=== PATIENT | male | born 1995 | race Caucasian/White ===

== ENCOUNTER 2021-12-08 08:47 | Day surgery (SDC) | payer SELFPAY ==
[2021-12-07 12:43] VITALS: BMI 25.7
[2021-12-08] VITALS (8 sets, daily range): BP systolic 121–137; BP diastolic 68–88; PULSE 55–89; RESP 16–18; TEMP 36.6–37.1; O2SAT 96–99
[2021-12-08] MEDS: sodium chloride 0.9% 1,000 ML 30 ML IV (09:17)
--- NOTE | 2021-12-08 09:50 | W.PM.OPSUD ---
Surgery/Procedure H&P Update DATE OF PROCEDURE: December 08, 2021 DATE H&P PERFORMED: 11/23/21 H&P UPDATE INFORMATION: I have reviewed H&P completed within last 30 days, I have examined patient prior to procedure and No changes to prior documentation PREOP DIAGNOSIS: Papilloma right inferior tonsillar pillar PRIMARY INDICATION FOR PROCEDURE: Papilloma right inferior tonsillar pillar to be removed for biopsy purposes. PLANNED PROCEDURE: Operation Date: 12/08/21 10:15 Proposed Procedures p Excision Mouth Mass/Lesion 08646/d10.30(Not Applicable) - Luis Felipe Mendoza MD
--- NOTE | 2021-12-08 09:58 | ANES.PREANE2 ---
Pre-Anesthetic Assessment Height/Weight: Height 1.83 m Weight 86.183 kg Temp Pulse Resp BP Pulse Ox 98.7 F 73 16 124/88 99 12/08/21 09:06 12/08/21 09:06 12/08/21 09:06 12/08/21 09:06 12/08/21 09:06 Preop Diagnosis: Papilloma right inferior tonsillar pillar Operation Date: 12/08/21 10:15 Proposed Procedures p Excision Mouth Mass/Lesion 84562/d10.30(Not Applicable) - Luis Felipe Mendoza MD Familial anesthetic complications: None Was Beta Judah taken within 24 hours: N/A Was Clonidine taken within 24 hours: N/A Last intake: Intake Last Liquid Date 12/07/21 Last Liquid Time 22:00 Last Solid Date 12/07/21 Last Solid Time 21:30 Social No alcohol and No tobacco Exam alert, oriented x 3, clear to auscultation bilaterally and regular rate & rhythm Airway Mallampati: Class II Dentition: chipped Pulmonary None reported CV/HEM None reported None reported Hepatic None reported GI None reported Metabolic None reported Musc/skel None reported Neuropsych None reported Anesthetic Plan ASA status: 1 Anesthesia: General Risk of > 500 ml blood loss (7ml/kg in children): No Medications/Allergies Home Medications Medication Instructions Recorded Confirmed Last Taken Type No Known Home Medications 12/07/21 12/07/21 Unknown History Allergies Allergy/AdvReac Type Severity Reaction Status Date / Time Iodinated Contrast Media Allergy ALGY-Rash Verified 12/08/21 09:04 Current Medications Generic Name Dose Route Start Last Admin Trade Name Freq PRN Reason Stop Dose Admin Sodium Chloride 1,000 mls @ 30 mls/hr 12/08/21 09:00 12/08/21 09:17 Sodium Chloride 0.9% IV 12/09/21 08:59 30 mls/hr .Q24H LOLLY Administration PFSH Anesthesia Medical History No pertinent past medical history Surgical History No pertinent past surgical history Family History Other Cancer Diabetes Hypertension Social History Smoking and tobacco status: former smoker (quit last Sunday smoked 1 pack a day) Data Anesthesia Cardiac Studies: No Data to Display
[2021-12-08] MEDS: EPINEPHrine 1 mg/mL INJ 2 MG XX (10:24)
--- NOTE | 2021-12-08 10:35 | PM.OP ---
Operative Report Date of procedure: December 08, 2021 Pre-op diagnosis: Preop Diagnosis Papilloma right inferior tonsillar pillar Post-op diagnosis: Same Post-op findings: 1 cm papillomatous lesion on the inferior aspect of the right anterior tonsillar pillar extending to the tonsil. Procedure done: Excision of right anterior pillar/tonsillar papilloma Implants: No implants Specimens removed/disposition: Excised papilloma with surrounding attachment Pathology: Papilloma Surgeon: Luis Felipe Mendoza MD Anesthesia: General Estimated blood loss: 10 mL Complications: No complications encountered Findings: 1 cm x 5 mm x 5 mm raised papilliform lesion extending from the inferior aspect of the right anterior tonsillar pillar to the tonsil. Brief History: 26-year-old male found to have a papillomatous lesion on the inferior aspect of the right anterior tonsillar pillar in the office on evaluation. He is brought to the operating room now to undergo excision of this lesion. The procedure risks and complications were explained in the office setting. Informed consent was granted and witnessed. Risks associated would be bleeding infection numbness scarring swelling bruising recurrence and need for additional treatment. Anesthetic risks also involved. Procedure: Description of procedure: The patient was placed on the operating table in the supine position. Adequate general endotracheal tube anesthesia was obtained. He was given Ancef IV for prophylaxis. The table was rotated 90 degrees and placed in slight headdown position. The eyes were taped shut and head drape was applied in usual fashion. A Jamey-Morgan mouthgag was inserted over the endotracheal tube and tongue ensuring that the upper incisors were in the guard. This was opened and suspended from a rolled blanket on his chest. A timeout was accomplished identifying the patient date of plan procedure allergies fire risk and medications given. With all in agreement the procedure continued. Direct visualization was used to see the papillomatous lesion. This was retracted with DeBakey forceps identifying the attachment to the anterior tonsillar pillar inferiorly. A 15 blade was used to excise down through the anterior pillar into the tonsil itself. This was resected and sent to pathology for permanent section only. The area was treated with 1-1000 epinephrine on cottonoids. After several minutes there still appeared to be active bleeding and therefore suction cautery was used to control the bleeding. Then the area was irrigated with saline and manipulated to make sure that no further bleeding was going to occur. Then the mouthgag was released and removed and the patient's head was returned to the upright position. Head drape and tape were removed. The throat was suctioned again with no sign of bleeding. Patient was then returned to anesthesia for wake-up and extubation. He tolerated the procedure well had an estimated blood loss of 10 mL and arrived in recovery in stable condition.
--- NOTE | 2021-12-08 10:57 | P.PCN_ITS ---
PACU note Narrative: VSS, Good respiratory effort, report to [employer] SALES Exam: awake
--- NOTE | 2021-12-08 10:57 | PM.PACU ---
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
== END 2021-12-08 11:38 | disposition home or self-care (01) ==
PROVIDERS: Visit Provider Otolaryngology
PROC: (CPT 42999; principal; 2021-12-08 10:05)
DX: D10.5 Benign neoplasm of other parts of oropharynx (principal); Z87.891 Personal history of nicotine dependence; K12.0 Recurrent oral aphthae
CPT/HCPCS: 42999; 88305; J0171; J0330; J0690; J1100; J2250; J2405; J2704; J2710; J3010; J3490; J7030

== ENCOUNTER → 2023-12-14 08:45 | Outpatient (BNVA) | payer BC, SELFPAY | PROVIDERS: Referring Provider Nurse Practitioner Family; Visit Provider Physician Assistant | DX: G56.01 Carpal tunnel syndrome, right upper limb | CPT/HCPCS: 73110 ==

== ENCOUNTER 2024-04-17 06:49 | Day surgery (SDC) | payer BC, SELFPAY ==
[2024-04-17] VITALS (7 sets, daily range): BP systolic 97–115; BP diastolic 49–87; PULSE 54–72; RESP 12–18; TEMP 36.2–36.5; O2SAT 94–98
[2024-04-17] MEDS: sodium chloride 0.9% 1,000 ML 30 ML IV (07:19)
--- NOTE | 2024-04-17 07:19 | P.ANESASSM_ITS ---
Pre-Anesthetic Assessment Height/Weight: Height 1.83 m Weight 93.44 kg Temp Pulse Resp BP Pulse Ox O2 Del Method 97.2 F L 63 16 115/87 98 Room Air 04/17/24 07:03 04/17/24 07:03 04/17/24 07:03 04/17/24 07:03 04/17/24 07:03 04/17/24 07:03 Operation Date: 04/17/24 08:20 Proposed Procedures p Carpal Tunnel Release(Right) - Richard Squires DO Familial anesthetic complications: None Was Beta Judah taken within 24 hours: N/A Was Clonidine taken within 24 hours: N/A Last intake: Intake Last Liquid Date 04/16/24 Last Liquid Time 21:30 Last Solid Date 04/16/24 Last Solid Time 21:30 Social Tobacco and No alcohol Exam alert, oriented x 3, clear to auscultation bilaterally and regular rate & rhythm Airway Mallampati: Class II Dentition: chipped Anesthetic Plan ASA status: 1 Anesthesia: MAC Risk of > 500 ml blood loss (7ml/kg in children): No Medications/Allergies Home Medications Medication Instructions Recorded Confirmed Last Taken Type No Known Home Medications 02/27/24 04/17/24 Unknown History Allergies Allergy/AdvReac Type Severity Reaction Status Date / Time Iodinated Contrast Media Allergy ALGY-Rash Verified 02/27/24 09:44 [facility] Anesthesia Medical History No pertinent past medical history Surgical History History of surgical procedure on mouth No pertinent past surgical history Family History Other Cancer Diabetes Hypertension Social History Smoking and tobacco/nicotine status: former use of tobacco/nicotine Data Anesthesia Cardiac Studies: No Data to Display
[2024-04-17] MEDS: acetaminophen 1,000 MG/100 ML PIGGYBACK 400 MG IV (07:21)
[2024-04-17] MEDS: ketorolac 30 mg/mL INJ IVP (07:23)
[2024-04-17] MEDS: scopolamine 1.5 Patch 1 PATCH TRANSDERMA (07:24)
--- NOTE | 2024-04-17 07:43 | W.PM.OPSFHP ---
Same Day Surgery H&P Indication for Procedure/HPI DATE OF PROCEDURE: April 17, 2024 CHIEF COMPLAINT/INDICATIONFOR SURGICAL PROCEDURE: Right carpal tunnel syndrome PREOP DIAGNOSIS: Right carpal tunnel syndrome PLANNED PROCEDURE: Operation Date: 04/17/24 08:20 Proposed Procedures p Carpal Tunnel Release(Right) - Richard Squires DO Medications/Allergies* Home Medications Medication Instructions Recorded Confirmed Type No Known Home Medications 02/27/24 04/17/24 History Allergies/Adverse Reactions Allergy/AdvReac Type Severity Reaction Status Date / Time Iodinated Contrast Media Allergy ALGY-Rash Verified 02/27/24 09:44 Current Medications: Generic Name Dose Route Start Last Admin Trade Name Freq PRN Reason Stop Dose Admin Sodium Chloride 1,000 mls @ 30 mls/hr 04/17/24 07:00 04/17/24 07:19 Sodium Chloride 0.9% IV 04/18/24 06:59 30 mls/hr .Q24H LOLLY Administration Pertinent History/Comorbid Conditions* Medical History (Updated 02/27/24 @ 10:25 by NI Hart) No pertinent past medical history Surgical History (Updated 12/16/21 @ 08:23 by Luis Felipe Mendoza MD) History of surgical procedure on mouth No pertinent past surgical history Family History (Updated 11/23/21 @ 08:04 by Aruna Seharer MA) Diabetes Cancer Hypertension Social History Smoking and tobacco/nicotine status: former use of tobacco/nicotine Pertinent Exam Findings alert, oriented x 3, operative site marked and procedure specific exam findings Please refer to detailed orthopedic examination on 02/27/2024 listed below: Today preoperatively he has positive Tinel's over the carpal tunnel as well and is positive median nerve compression test. Right hand Hand exam-positive Tinel's and positive Phalen's test. No thenar atrophy and mild thenar muscle weakness. Full range of motion in fingers and wrist and fingers are warm and well-perfused with normal cap refill under 2 seconds. Radial pulse 2+, no intrinsic muscle weakness noted. Elbow exam-negative Tinel's test Recommendations Surgery/Procedure today Other Plans: Patient has right carpal tunnel syndrome. Patient is here today to proceed with right carpal tunnel release surgery. He understands the ins and outs of his procedures risk benefits complication alternatives of surgery and through shared decision-making elects proceed with surgical intervention. All questions answered at this time. Coding Level of Care Code Acute Code for Chg Fwd
[2024-04-17] MEDS: ceFAZolin 2,000 MG in sodium chloride 0.9% (plus) 50 ML 100 MG IV (08:14)
--- NOTE | 2024-04-17 08:59 | W.PM.BPON ---
Date of Procedure: 04/17/2024 Surgeon: Richard Squires DO Bead Worker Sewing(s): None Procedure(s) performed: Right carpal tunnel release Findings of the procedure(s): Right carpal tunnel syndrome underwent procedure as planned without issues or complications. Estimated blood loss: 2 mL Specimen(s) removed: None Post-operative diagnosis: Right carpal tunnel syndrome
--- NOTE | 2024-04-17 08:59 | PM.OP ---
Operative Report Date of procedure: April 17, 2024 Surgeon: Richard Squires DO Procedure: Preoperative gnosis: Right carpal tunnel syndrome post-op diagnosis: Same Procedure done: 1.?Right carpal tunnel?release Surgeon: Richard Squires DO Anesthesia: MAC (Local) Estimated blood loss: 2 mL Tourniquet time 7 minutes IV fluids: See anesthesia?record Complications: None Findings: See operative?report narrative Condition: stable Disposition: same day Brief History: Patient is a pleasant 29 year-old male with?right carpal tunnel syndrome.? Patient has been worked up in the outpatient setting findings and physical examination consistent with this.? Patient nerve conduction studies consistent with possible right sided minor/mild right carpal tunnel syndrome.? We detailed out patient's?risk benefits complication alternatives with surgical and nonsurgical treatment options. Through shared decision making, patient agrees to proceed with surgical intervention of the right carpal tunnel?release .? Patient understands and agrees with current plan.? All questions answered.? Patient elects to proceed with surgical intervention with carpal tunnel?release. Procedure: Patient seen and evaluated in the preoperative holding area.? Consent was?reviewed and signed with patient.? Correct extremity was marked.? Patient was seen evaluated by the anesthesia department once cleared for surgery was brought back to the operative suite.? Patient was kept on [facility] in supine position all bony prominences were well-padded patient properly secured to the bed.??Right upper extremity was then placed onto an armboard.? A nonsterile tourniquet was applied to the?RIght upper arm.? Patient underwent anesthesia per the anesthesia department.? Patient's?Right upper extremity was then prepped and draped in standard orthopedic fashion.? Final timeout performed.? Patient?received appropriate preoperative antibiotics. Under sterile aseptic technique patient?received local anesthesia over the preplanned carpal tunnel incision site. Esmarch was used to exsanguinate the?Right upper extremity and tourniquet was insufflated to 250 mmHg. A standard mini open?Right carpal tunnel incision was made.? Starting distally at Landin's cardinal line in line with the fourth?ray extending proximally distal to the wrist crease centered over the carpal tunnel.? Sharp scalpel incision was made through skin and subcutaneous tissue.? Self-retaining?retractor was placed and the palmar fascia was identified.? This was then split longitudinally and direct visualization of the transverse carpal ligament was then made.? I then utilizing scalpel feathered through the transverse carpal ligament until I entered the floor of the transverse carpal tunnel ligament into the carpal tunnel.? Next I switched to dissection scissors and completed my?release of the transverse carpal ligament distally with care to protect the?recurrent motor branch.? I completely?released into the palmar fat and until no entrapment was noted distally.? Care was made to protect the superficial palmar arch during my distal dissection.?? Next I utilized a nasal speculum placed on top of the transverse carpal ligament and utilize this to?retract the subcutaneous fat and tissue and under direct loupe magnification was able to identify the transverse carpal ligament.? Next I then placed a [place] underneath the transverse carpal tunnel ligament to protect the contents of the carpal tunnel and subsequently utilizing dissection scissors under loupe magnification completely?released the transverse carpal ligament proximally into the median antebrachial fascia.? Care was made to protect the palmar cutaneous branch by keeping my scissors curved ulnarly.? Once completely?released, I then placed my [place] and had appropriate decompression of the carpal tunnel proximally as well as distally.? I then inspected the contents of the carpal tunnel which showed an hourglass shape of the median nerve showing its compression.? No masses were noted.? Tendons appeared healthy.? Wound was then thoroughly irrigated.? Tourniquet deflated.? Hemostasis satisfactory with bipolar electrocautery.? I then closed the incision with interrupted nylon stitches.? Xeroform 4 x 4's and a bulky soft dressing was applied.? Patient was then awakened from anesthesia and taken to PACU in stable condition.? Patient tolerated procedure without complications. Disposition: Patient taken to PACU in stable condition?recovering well.? Dressing clean dry and intact.? Patient will?receive appropriate discharge instructions as well as pain medication postoperatively.? Patient to follow-up with me in the office in 2 weeks.? They understand they may be weightbearing as tolerated to the?right hand.? Patient should keep incision clean dry and intact.? Patient understands if any questions or concerns may contact the office.
[2024-04-17] MEDS: lidocaine-epi 1% 20 mL INJ 5 ML INJECTION (09:15)
[2024-04-17] MEDS: ROPivacaine 0.5% SDV 30 mL 25 MG INJECTION (09:15)
--- NOTE | 2024-04-17 10:00 | ANE.PACU2 ---
Inpatient post-anesthesia follow up: Airway intact: Yes Vital signs: Temperature 97.7 F Pulse Rate 55 Respiratory Rate 16 Blood Pressure 97/68 Pulse Oximetry 98 Oxygen Delivery Me thod Room Air Oxygen Flow Rate Fraction of Inspir ed Oxygen Hydration adequate: Yes Nausea and vomiting: No Pain level: 1 Mental status: Baseline
== END 2024-04-17 10:00 | disposition home or self-care (01) ==
PROVIDERS: Visit Provider Student in an Organized Health Care Education/Training Program
PROC: (CPT 64721; principal; 2024-04-17 08:20)
DX: G56.01 Carpal tunnel syndrome, right upper limb (principal); Z87.891 Personal history of nicotine dependence
CPT/HCPCS: 64721; J0131; J0690; J1885; J2250; J2704; J2795; J3010; J7030

== ENCOUNTER 2025-06-17 17:53 | Emergency (ER) | payer BC, SELFPAY ==
--- OUTSIDE RECORDS SUMMARY | 2025-06-17 17:59 | XMS_ITS | Data Portability ---
Author Organization ADAMA Tucker [facility] Address [address] [facility] [address] [place] [address] Care Team Providers Care [employer] Worker Name Role Phone GABBI HOYT Primary Care Provider Assessment Encounter Date Assessment Date Assessment LastModified by Organization Details LastModified Time 03/10/2025 03/10/2025 We had a long discussion regarding his abdominal pain. He continues to have right lower quadrant abdominal pain that is intermittently more severe. I offered to have him see a licensed electrician if he wanted to. I also did let him know that I felt that that would be low yield at this time. I did let him know that post normal colonoscopy and post normal CT scan that it would be reasonable to wait and watch to see if his pain improves. He was also having some upper quadrant pain that he felt improved with the PPI. I have encouraged him to be more consistent with his MiraLAX and with his Metamucil since he continues to have constipation. While I do not think it is only a problem, I can is important that we resolve the constipation issue so that we can see what pain is left. At that point, if we continue to have issues, we will look at other diagnostic and or therapeutic answers. Not available 03/10/2025 22:37:10 Plan of Treatment Reminders Order Date Submit Date Provider Last Modified By Organization Details Last Modified Time Details Appointments None recorded. Lab CMP, serum or plasma 2024 025 [facility], [address], [facility], [place], [address], 05/28/202 5 13:32:27 CBC 2024 025 Pending sale to [facility], [address] [facility], [facility], [place], [address], 5 12:36:38 lipid panel, blood 2023 024 Pending sale to [facility], [address] [facility], [address], [address], 4 17:16:33 CMP, serum or plasma 2023 024 Pending sale to [facility], [address] [facility], [facility], [place], [address], 4 17:16:31 CBC 2023 024 Pending sale to [facility], [address] [facility], [facility], [place], [address], 4 16:44:26 TSH, serum or plasma 2023 024 [facility] ([facility]), [address] [place], [address], 4 18:12:27 vitamin B12, serum 2023 024 [employer] [facility], [address], [address], [place], [address], 4 11:52:03 vitamin D, 25-hydroxy, total, serum 2023 024 [employer] [facility], [address], [place], [address], 4 11:52:04 Referral family medicine referral 2024 025 [email or web address] 2 Not available 5 18:21:21 Procedures colonoscopy procedure (PROC) 2024 025 [email or web address] 2 [facility], [address] , [place], [address], 11:28:09 Surgeries None recorded. Imaging XR, abdomen, 2 view 2024 025 [email or web address] 2 [facility] ([facility]), [address], [place], [address], 15:37:53 Medication Orders omeprazole 20 mg capsule,del ayed release 2024 025 [id number], [address], [address], [place], [address], 12:57:43 Patient TargetsNo targets recorded. Patient Instructions Encounter Date Encounter Id Patient Instructions Last Modified By Organization Details Last Modified Time 02/03/2025 [id number] colonoscopy prep - miralax Not available 02/03/2025 13:41:38 colonoscopy education Not available 02/03/2025 13:41:38 colonoscopy education Not available 02/03/2025 13:41:37 Reason for Referral Family Medicine Referral for Altered bowel function Referring Physician: Gabbi Hoyt, Family Medicine, Encounter Date: 12/31/2024 Results Created Date Observation Date Name Description Value Unit Range Abnormal Flag Note LastModifiedBy Organization Detail LastModifiedTime 12/05/1912/05/2023 CBC WBC 6.6 x10 4.5-10 .5 Not Available [facility] [address] [facility] [address], [place], [address], 12/05/2023 16:44:26 12/05/19 24 12/05/2023 CBC RBC 5.21 x10 4.30-5 .90 Not Available [facility] [address] [facility] [address], [place], [address], 12/05/2023 16:44:26 12/05/19 24 12/05/2023 CBC HGB 15.9 g/dL 13.5-1 8.0 Not Available [facility] [address] [facility], [place], [address], 12/05/2023 16:44:26 12/05/19 24 12/05/2023 CBC HCT 46.2 % 35.0-6 0.0 Not Available [facility] [address] [facility], [place], [address], 12/05/2023 16:44:26 12/05/19 24 12/05/2023 CBC MCV 88.6 fL 80.0-9 9.9 Not Available [facility] [address] [facility] [address], [place], [address], 12/05/2023 16:44:26 12/05/19 24 12/05/2023 CBC MCH 30.4 pg 27.0-3 2.0 Not Available [facility] [address] [facility] [address] [facility], [place], [address], 12/05/2023 16:44:26 12/05/19 24 12/05/2023 CBC MCHC 34.3 g/dL 32.0-3 6.0 Not Available [facility] [address] [facility], [place], [address], 12/05/2023 16:44:26 12/05/19 24 12/05/2023 CBC RDW 13.4 % 11.5-1 4.5 Not Available [facility] [address] [facility], [place], [address], 12/05/2023 16:44:26 12/05/19 24 12/05/2023 CBC plt 185.9 x10 150.0- 451.0 Not Available [facility] [address] [facility] [address] [facility], [place], [address], 12/05/2023 16:44:26 12/05/19 24 12/05/2023 CBC lymphocytes % 12.1 % 20.0-5 0.0 low Not Available [facility] [address] [address], [place], [address], 12/05/2023 16:44:26 12/05/19 24 12/05/2023 CBC granulcytes % 80.6 % 30.0-7 0.0 high Not Available [facility] [address] [address], [place], [address], 12/05/2023 16:44:26 12/05/19 24 12/05/2023 CBC monocytes % 6.4 % 2.0-10 .0 Not Available [facility] [address] [address], [place], [address], 12/05/2023 16:44:26 12/05/19 24 12/05/2023 CBC granulcytes# 5.3 x10 Not Lucía ilable [facility] [address] [address], [place], [address], 12/05/2023 16:44:26 12/05/19 24 12/05/2023 CBC lymphocytes # 0.8 x10 Not Available [facility] [address] [address], [place], [address], 12/05/2023 16:44:26 12/05/19 24 12/05/2023 CBC monocytes # 0.4 x10 Not Avai lable [facility] [address] [address], [place], [address], 12/05/2023 16:44:26 12/05/19 24 12/05/2023 CMP (MALE ) glucose 105.0 mg/dL 60.0-9 9.0 high Not Available [facility] [address] [address], [place], [address], 12/05/2023 17:16:31 12/05/19 24 12/05/2023 CMP (MALE ) BUN (blood urea nitrogen) 19.0 mg/dL 10.0-2 6.0 Not Available [facility] [address] [facility], [place], [address], 12/05/2023 17:16:31 12/05/19 24 12/05/2023 CMP (MALE ) creatinine (serum) 0.9 mg/dL 0.4-1. 5 Not Available [facility] [address] [facility] [address] [address], [place], [address], 12/05/2023 17:16:31 12/05/19 24 12/05/2023 CMP (MALE ) BUN/creatini ne ratio 20.65 ratio Not Available [facility] [address] [address], [place], [address], 12/05/2023 17:16:31 12/05/19 24 12/05/2023 CMP (MALE ) eGFR calculated 103.4 Not Available [facility] [address] [facility] [address] [address], [place], [address], 12/05/2023 17:16:31 12/05/19 24 12/05/2023 CMP (MALE ) total protein 7.6 g/dL 6.0-8. 5 Not Available [facility] [address] [facility] [address] [address], [place], [address], 12/05/2023 17:16:31 12/05/19 24 12/05/2023 CMP (MALE ) total bilirubin 1.4 mg/dL 0.2-1. 3 high Not Available [facility] [address] [facility] [address] [address], [place], [address], 12/05/2023 17:16:31 12/05/19 24 12/05/2023 CMP (MALE ) albumin 4.5 g/dL 3.5-5. 5 Not Available [facility] [address] [facility] [address], [place], [address], 12/05/2023 17:16:31 12/05/19 24 12/05/2023 CMP (MALE ) globulin 3.1 calc Not Available [facility] [address] [facility] [address], [place], [address], 12/05/2023 17:16:31 12/05/19 24 12/05/2023 CMP (MALE ) AST (SGOT) 25.0 U/L 0.0-46 .0 Not Available [facility] [address] [address], [place], [address], 12/05/2023 17:16:31 12/05/19 24 12/05/2023 CMP (MALE ) altv (SGPT) 21.0 U/L 13.0-6 9.0 normal Not Available [facility] [address] [facility] [address], [place], [address], 12/05/2023 17:16:31 12/05/19 24 12/05/2023 CMP (MALE ) A/G ratio 1.5 ratio Not Available [facility] [address] [address], [place], [address], 12/05/2023 17:16:31 12/05/19 24 12/05/2023 CMP (MALE ) ALP phos 52.0 U/L 30.0-1 40.0 normal Not Available [facility] [address] [facility] [address], [place], [address], 12/05/2023 17:16:31 12/05/19 24 12/05/2023 CMP (MALE ) calcium 8.8 mg/dL 8.4-10 .5 Not Available [facility] [address] [facility] [address], [place], [address], 12/05/2023 17:16:31 12/05/19 24 12/05/2023 CMP (MALE ) sodium 141.0 mmol/ L 136.0- 145.0 Not Available [facility] [address] [facility] [address], [place], [address], 12/05/2023 17:16:31 12/05/19 24 12/05/2023 CMP (MALE ) potassium 3.7 mmol/ L 3.5-5. 1 Not Available [facility] [address] [facility] [address], [place], [address], 12/05/2023 17:16:31 12/05/19 24 12/05/2023 CMP (MALE ) chloride 105.0 mmol/ L 98.0-1 10.0 normal Not Available [facility] [address] [facility] [address], [place], [address], 12/05/2023 17:16:31 12/05/19 24 12/05/2023 CMP (MALE ) C02 26.0 mmol/ L 22.0-3 1.0 Not Available [facility] [address] [facility] [address], [place], [address], 12/05/2023 17:16:31 12/05/19 24 12/05/2023 CMP (MALE ) anion gap 10.0 calc Not Available [facility] [address] [facility] [address], [place], [address], 12/05/2023 17:16:31 12/05/19 24 12/05/2023 CMP (MALE ) osmolality 293.6 calc Not Available [facility] [address] [facility] [address], [place], [address], 12/05/2023 17:16:31 12/05/19 24 12/05/2023 LIPID PROFI LE (MALE ) cholesterol 180.0 mg/dL 0.0-20 0.0 Not Available [facility] [address] [address], [place], [address], 12/05/2023 17:16:33 12/05/19 24 12/05/2023 LIPID PROFI LE (MALE ) trig 75.0 mg/dL 0.0-15 0.0 Not Available [facility] [address] [facility] [address], [place], [address], 12/05/2023 17:16:33 12/05/19 24 12/05/2023 LIPID PROFI LE (MALE ) HDL - direct 44.0 mg/dL >40.0 Not Available [facility] [address] [address], [place], [address], 12/05/2023 17:16:33 12/05/19 24 12/05/2023 LIPID PROFI LE (MALE ) VLDL - direct 15.0 mg/dL Not Available [facility] [address] [address], [place], [address], 12/05/2023 17:16:33 12/05/19 24 12/05/2023 LIPID PROFI LE (MALE ) LDL - direct 121.0 mg/dL 0.0-13 0.0 Not Available [facility] [address] [address], [place], [address], 12/05/2023 17:16:33 12/05/19 24 12/06/2023 VITAM IN B12 vitamin B12 339 pg/mL 200-11 00 normal Pleas e Note: Altho ugh the refer ence range for vitam in B12 is 200-1 100 pg/mL , it has been repor christopher that betwe en 5 and 10% of patie nts with value s betwe en 200 and 400 pg/mL may exper ience neuro psych iatri c and hemat ologi c abnor malit ies due to occul t B12 defic iency ; less than 1% of patie nts with value s above 400 pg/mL will have sympt oms. Not Available [facility] [address] [place], [address], 12/06/2023 11:52:03 12/05/19 24 12/06/2023 VITAM IN D,25- OH,TO LINDA,I A vitamin D,25-oh,tota l,ia 16 NG/mL 30-100 low Vitam in D Statu s 25-OH Vitam in D: Defic iency : <20 ng/mL Insuf ficie ncy: 20 - 29 ng/mL Optim al: > or = 30 ng/mL For 25-OH Vitam in D testi ng on patie nts on D2-pires pplem entat ion and patie nts for whom quant itati on of D2 and D3 fract ions is requi red, the [facility] eD(TM ) 25-OH VIT D, (D2,D 3), LC/MS /MS is recom vikash d: order code [id number] (nelson ents >2yrs ). See Note 1 Note 1 For addit ional infor areli sharp e refer to http: //[facility] Machado gnleighton ics.c om/fa q/FAQ 199 (This link is being provi ded for infor bharat blanco/ jamey jaime purpo ses only. ) Not Available [facility] [address], [place], [address], 12/06/2023 11:52:04 12/05/19 24 12/05/2023 TSH, serum or plasm a TSH 0.18 uIU/m L 0.49-3 .82 normal Not Available [facility] ([facility]) [address] [place], [address], 12/05/2023 16:12:12 01/01/20 25 12/31/2024 CBC WBC 4.7 x10 4.5-10 .5 Not Available [facility] [address] [place] [address], [address], 12/31/2024 12:36:38 01/01/20 25 12/31/2024 CBC RBC 4.92 x10 4.30-5 .90 Not Available [facility] [address] [facility], [place], [address], 12/31/2024 12:36:38 01/01/2012/31/2024 CBC HGB 14.7 g/dL 13.5-1 8.0 Not Available [facility] [address] [facility], [place], [address], 12/31/2024 12:36:38 01/01/2012/31/2024 CBC HCT 44.7 % 35.0-6 0.0 Not Available [facility] [address] [facility], [place], [address], 12/31/2024 12:36:38 01/01/2012/31/2024 CBC MCV 90.9 fL 80.0-9 9.9 Not Available [facility] [address] [facility], [place], [address], 12/31/2024 12:36:38 01/01/2012/31/2024 CBC MCH 29.8 pg 27.0-3 2.0 Not Available [facility] [address] [facility], [place], [address], 12/31/2024 12:36:38 01/01/2012/31/2024 CBC MCHC 32.8 g/dL 32.0-3 6.0 Not Available [facility] [address] [facility], [place], [address], 12/31/2024 12:36:38 01/01/2012/31/2024 CBC RDW 14.4 % 11.5-1 4.5 Not Available [facility] [address] [facility] [address], [place], [address], 12/31/2024 12:36:38 01/01/2012/31/2024 CBC plt 207.9 x10 150.0- 451.0 Not Available [facility] [address] [address], [place], [address], 12/31/2024 12:36:38 01/01/20 25 12/31/2024 CBC lymphocytes % 64.8 % 20.0-5 0.0 high Not Available [facility] [address] [address], [place], [address], 12/31/2024 12:36:38 01/01/20 25 12/31/2024 CBC granulcytes % 26.1 % 30.0-7 0.0 low Not Available [facility] [address] [address], [place], [address], 12/31/2024 12:36:38 01/01/20 25 12/31/2024 CBC monocytes % 8.3 % 2.0-16 .0 Not Available [facility] [address] [address], [place], [address], 12/31/2024 12:36:38 01/01/20 25 12/31/2024 CBC granulcytes# 1.2 x10 Not Lucía ilable [facility] [address] [address], [place], [address], 12/31/2024 12:36:38 01/01/20 25 12/31/2024 CBC lymphocytes # 3.0 x10 Not Available [facility] [address] [address], [place], [address], 12/31/2024 12:36:38 01/01/20 25 12/31/2024 CBC monocytes # 0.4 x10 Not Avai lable [facility] [address] [facility], [place], [address], 12/31/2024 12:36:38 01/01/20 25 12/31/2024 CMP (MALE ) glucose 86.0 mg/dL 60.0-9 9.0 Not Available [facility] [address] [facility] [address] [facility], [place], [address], 12/31/2024 13:32:27 01/01/20 25 12/31/2024 CMP (MALE ) BUN (blood urea nitrogen) 14.0 mg/dL 10.0-2 6.0 Not Available [facility] [address] [facility], [place], [address], 12/31/2024 13:32:27 01/01/20 25 12/31/2024 CMP (MALE ) creatinine (serum) 0.9 mg/dL 0.4-1. 5 Not Available [facility] [address] [facility] [place], [address], 12/31/2024 13:32:27 01/01/20 25 12/31/2024 CMP (MALE ) BUN/creatini ne ratio 15.56 ratio Not Available [facility] [address] [facility], [place], [address], 12/31/2024 13:32:27 01/01/20 25 12/31/2024 CMP (MALE ) eGFR calculated 105.3 Not Available [facility] [address] [facility], [place], [address], 12/31/2024 13:32:27 01/01/20 25 12/31/2024 CMP (MALE ) total protein 7.3 g/dL 6.0-8. 5 Not Available [facility] [address] [facility] [address] [facility], [place], [address], 12/31/2024 13:32:27 01/01/20 25 12/31/2024 CMP (MALE ) total bilirubin 1.0 mg/dL 0.2-1. 3 Not Available [facility] [address] [facility] [address], [place], [address], 12/31/2024 13:32:27 01/01/20 25 12/31/2024 CMP (MALE ) albumin 4.4 g/dL 3.5-5. 5 Not Available [facility] [address] [facility] [address], [place], [address], 12/31/2024 13:32:27 01/01/20 25 12/31/2024 CMP (MALE ) globulin 2.9 calc Not Available [facility] [address] [address], [place], [address], 12/31/2024 13:32:27 01/01/20 25 12/31/2024 CMP (MALE ) AST (SGOT) 19.0 U/L 0.0-46 .0 Not Available [facility] [address] [facility] [address], [place], [address], 12/31/2024 13:32:27 01/01/20 25 12/31/2024 CMP (MALE ) altv (SGPT) 19.0 U/L 13.0-6 9.0 normal Not Available [facility] [address] [facility] [address], [place], [address], 12/31/2024 13:32:27 01/01/20 25 12/31/2024 CMP (MALE ) A/G ratio 1.5 ratio Not Available [facility] [address] [facility], [place], [address], 12/31/2024 13:32:27 01/01/20 25 12/31/2024 CMP (MALE ) ALP phos 39.0 U/L 30.0-1 40.0 normal Not Available [facility] [address] [facility] [address], [place], [address], 12/31/2024 13:32:27 01/01/2012/31/2024 CMP (MALE ) calcium 9.3 mg/dL 8.4-10 .5 Not Available [facility] [address] [facility] [address], [place], [address], 12/31/2024 13:32:27 01/01/2012/31/2024 CMP (MALE ) sodium 141.0 mmol/ L 136.0- 145.0 Not Available [facility] [address] [facility] [address], [place], [address], 12/31/2024 13:32:27 01/01/2012/31/2024 CMP (MALE ) potassium 3.8 mmol/ L 3.5-5. 1 Not Available [facility] [address] [facility] [address], [place], [address], 12/31/2024 13:32:27 01/01/2012/31/2024 CMP (MALE ) chloride 103.0 mmol/ L 98.0-1 10.0 normal Not Available [facility] [address] [facility] [address], [place], [address], 12/31/2024 13:32:27 01/01/2012/31/2024 CMP (MALE ) C02 31.0 mmol/ L 22.0-3 1.0 Not Available [facility] [address] [facility] [address], [place], [address], 12/31/2024 13:32:27 01/01/2012/31/2024 CMP (MALE ) anion gap 7.0 calc Not Available [facility] [address] [facility] [address], [place], [address], 12/31/2024 13:32:27 01/01/20 25 12/31/2024 CMP (MALE ) osmolality 291.0 calc Not Available [facility] [address] [facility] [address], [place], [address], 12/31/2024 13:32:27 01/02/20 25 12/31/2024 XR, abdom en, 2 view No observ ation record ed. [facility] [address] [facility] [address] [facility] [address], [place], [address], 01/02/2025 13:10:34 02/27/20 25 02/26/2025 colon oscop y proce dure (PROC ) No observ ation record ed. [email or web address] [facility] [address] , [place], [address], 02/27/2025 08:56:10 Result Notes None recorded. Problems Name Problem SNOMED Code Status Onset Date Resolution Date Notes Provider Name and Address Organization Details Recorded Time Pain of right wrist 8910584031198 00 Active 2023 Gabbi Hoyt MD [address] [place] [address], [address], [facility] 4 16:03:43 Fatigue 09527885 Active 2023 Gabbi Hoyt MD [address] [place] [address], [address], [facility] 4 16:11:40 Carpal tunnel syndrome of right wrist 9155135552454 08 Active 2023 Gabbi Hoyt MD [address] [place] [address], [address], [facility] 4 12:07:49 Bile-induce d gastritis 91273163 Active 2024 Gabbi Hoyt MD [address] [place] [address], [address], [facility] 12:04:06 Acute abdominal pain 094621188 Active [address] [facility] LPaoL.CPao 12:58:45 Altered bowel function 67461128 Active [address] [facility] 12:58:49 Hypertensiv e emergency 9853115016607 04 Active 2024 Gabbi Hoyt MD [address] [place] [address], [address], [facility], Ja 12:12:16 Rectal pain 91166048 Active [address] [facility], GeovanyL.CPao 13:04:36 Rectal hemorrhage 46052643 Active [address] [facility] L.L[facility]CPao 13:04:38 Chronic constipatio n 980673897 Active [address] [facility] 13:04:40 Unintention al weight loss 913396530 Active [address] [facility] 13:04:41 Decrease in appetite 01096309 Active [address] [facility]ao 13:04:43 Problem Notes None recorded. Procedures Surgical History Date Name Laterality Status Provider Name and Address Organization Details Recorded Time colonoscopy completed MELODY SINGLETON [facility] Ja 02/26/2025 13:19:50 Carpal Tunnel Surgery completed Saira Montgomery [facility] Ja 12/31/2024 11:42:40 ENT Surgery [facility]achioma [facility]31/2024 11:42:20 Imaging Results None recorded. Procedure Notes None recorded. Medical Equipment None Reported. Allergies Allergen ID Allergen Name Allergen Category Reaction Reaction Severity Criticality Documentation Date Start Date Code Code System Note Provider Name and Address Organization Details Recorded Time 70618 iodine medicatio n Not available Not available Not available 03/03/2023 5933 RxNorm Comme nt: Recor ded 05/10 10:49 AM by Mey Marshall Visit ; Mere christopher; Jhonatan merritt ce: *; Reaso n: Drug aller gy; ; LIDASA CHERISE espinoza [facility] Ja 4 11:47:57 17441 honey bee venom medicatio n Not available Not available Not available 08/31/2023 [address] [facility], Ja 4 17:30:45 97586 iodine medicatio n Not available Not available Not available 03/17/2024 5933 RxNorm LIDA CHERISE [facility] 4 11:47:53 Medications Name Sig Start Date Stop Date Status Note LastModified by Organization Details LastModified Time Miralax 17 gram oral powder packet Take 17 g as needed by oral route. active Not Available Not Available No t Available tramadol 50 mg tablet TAKE ONE TABLET BY MOUTH EVERY 6 HOURS NEEDED FOR PAIN for FIVE DAYS 12/31 completed Not Available Not Available Not Available omeprazole 20 mg capsule,del ayed release Take 1 capsule every day by oral route. 02/03 completed Not Available Not Available Not Available ondansetron 4 mg disintegrat ing tablet DISSOLVE ONE TABLET ON top of THE TONGUE EVERY 8 HOURS NEEDED FOR NAUSEA AND vomiting postop for THREE DAYS 12/31 completed Not Available Not Available Not Available amoxicillin 875 mg-potassiu m clavulanate 125 mg tablet TAKE 1 TABLET BY MOUTH EVERY 12 HOURS FOR 7 DAYS 11/24 completed Not Available Not Available Not Available Maximum Strength Laxative 25 mg tablet Take as needed by oral route. active Not Available Not Available No t Available Metamucil (sugar) oral powder Take 1 tbsp every day by oral route. active Not Available Not Available No t Available Vitals Date Recorded Body height Respiratory rate Body mass index (BMI) Body weight Body temperature Heart rate Oxygen saturation Oxygen saturation in Arterial blood by Pulse oximetry Systolic And Diastolic Provider Name and Address Organization Details Last Updated DateTime 4 182.88 cm 20 /min 28.1 kg/m2 94647.4 2 g 97.4 [degF] 83 /min 98 % 98 % 118/70 mm[Hg] LIDA LUONG [facility] 4 15:50:22 Date Recorded Body height Body mass index (BMI) Body weight Oxygen saturation Oxygen saturation in Arterial blood by Pulse oximetry Heart rate Respiratory rate Body temperature Systolic And Diastolic Provider Name and Address Organization Details Last Updated DateTime 5 182.88 cm 25.9 kg/m2 88169.8 6 g 99 % 99 % 88 /min 18 /min 97.2 [degF] 122/78 mm[Hg] Saira Montgomery [facility] 5 11:37:16 Date Recorded Body height Body mass index (BMI) Body weight Heart rate Oxygen saturation Oxygen saturation in Arterial blood by Pulse oximetry Respiratory rate Body temperature Systolic And Diastolic Provider Name and Address Organization Details Last Updated DateTime 5 182.88 cm 25.4 kg/m2 37171.4 7 g 74 /min 99 % 99 % 18 /min 98.3 [degF] 118/76 mm[Hg] MELODY SINGLETON [facility] 5 13:03:40 Date Recorded Body height Body mass index (BMI) Body weight Oxygen saturation Oxygen saturation in Arterial blood by Pulse oximetry Heart rate Respiratory rate Body temperature Systolic And Diastolic Provider Name and Address Organization Details Last Updated DateTime 5 182.88 cm 25.1 kg/m2 20494.6 9 g 96 % 96 % 58 /min 18 /min 98 [degF] 124/72 mm[Hg] TREBA NEUSCHWAN ROVERTO [facility] 5 12:22:24 Date Recorded Body height Respiratory rate Body mass index (BMI) Body weight Body temperature Heart rate Oxygen saturation Oxygen saturation in Arterial blood by Pulse oximetry Systolic And Diastolic Provider Name and Address Organization Details Last Updated DateTime 4 182.88 cm 20 /min 28.8 kg/m2 93806.9 8 g 97.9 [degF] 88 /min 98 % 98 % 132/80 mm[Hg] LIDA LUONG [facility] 4 11:49:25 Social History Question Answer Notes LastModified by Organizat ion Details LastModified Time Tobacco Smoking Status Former Smoker leandro espinoza [facility] 12/31/2024 11:40:02 Do You Have An Advance Directive? No Information not available 12/05/2023 Are You Blind Or Do You Have Difficulty Seeing? No Information not available 12/05/2023 What Is Your Level Of Caffeine Consumption? Heavy Information not available 12/05/2023 Are You Deaf Or Do You Have Serious Difficulty Hearing? No Information not available 12/05/2023 What Type Of Diet Are You Following? REGULAR Information not available 12/05/2023 Which Illicit Or Recreational Drugs Have You Used? Very Small Amount Of Marijuana Information not available 12/31/2024 What Is The Highest Grade Or Level Of School You Have Completed Or The Highest Degree You Have Received? [id number] Information not available 12/05/2023 Which Of Your Hands Is Dominant? Left Information not available 12/05/2023 What Was The Date Of Your Most Recent Tobacco Screening? 12/31/2024 [email or web address] Information not available 12/31/2024 What Is Your Current Pack Years? 10-19packyears Information not available 12/31/2024 What Is Your Relationship Status? Single Information not available 02/03/2025 Have You Recently Traveled Abroad? No Information not available 12/05/2023 Have You Used IV Drugs? No Information not available 12/05/2023 Do You Have Difficulty Walking Or Climbing Stairs? No Information not available 12/05/2023 Are You Currently In School? No Information not available 12/05/2023 Do You Have Any Dietary Restrictions? No Information not available 12/05/2023 Sex: Unknown Functional Status Question Answer Note LastModified by Organizat ion Details LastModified Time Do you use any illicit or recreational drugs? Yes Information not available 11/25/2023 Do you or have you ever used any other forms of tobacco or nicotine? Yes Information not available 11/25/2023 What is your level of alcohol consumption? None hx of alcohol abuse [email or web address] Information not available 12/31/2024 Are you currently employed? Yes Information not available 12/05/2023 Do you have transportation difficulties? No Information not available 12/05/2023 Are you able to walk independently without assistance or assistive devices? YESWOREST Information not available 12/05/2023 Do you have difficulty doing errands alone? No Information not available 12/05/2023 Are you able to care for yourself independently? Yes Information not available 12/05/2023 Do you have difficulty dressing, bathing, grooming, or toileting? No Information not available 12/05/2023 Do you or have you ever used e-cigarettes or vape? Current user of electronic cigarettes Information not available 11/25/2023 What is your exercise level? Occasional Information not available 12/05/2023 Mental Status Question Answer Note LastModified by Organization D etails LastModified Time Do you have difficulty concentrating, remembering or making decisions? No Information no t available 12/05/2023 Family History Relationship Description Onset Age of this Age Resolved Age Notes LastModified by Organization Details LastModified Time Mother Diabetes mellitus [email or web address] Not available 2023 15:51:36 Father Malignant neoplastic disease tgregg Not available 2023 15:51:51 Notes:father has had colon p olyps removed twice Both grandmother had colon cancer. Medical History No medical history recorded. Immunizations Vaccine Type Date Status Note Provider Nam e and Address Organization Details Recorded Time MMR 02/12/1995 completed MELODY espinoza, [facility] 11/25/2023 15:31:35 MMR 03/02/1998 completed MELODY espinoza, [facility] 11/25/2023 15:31:36 Tdap 03/13/2008 completed MELODY espinoza, [facility] 11/25/2023 15:31:36 DTP 1994 completed MELODY espinoza, [facility] 11/25/2023 15:31:36 DTP 1994 completed MELODY espinoza, [facility] 11/25/2023 15:31:36 DTP 1994 completed MELODY espinoza, [facility] 11/25/2023 15:31:36 Hep B, unspecified formulation 1994 completed MELODY espinoza, [facility] 11/25/2023 15:31:36 Hep B, unspecified formulation 1994 completed MELODY espinoza, [facility] 11/25/2023 15:31:36 Hep B, unspecified formulation 1994 completed MELODY SINGLETON null, [facility] 11/25/2023 15:31:36 OPV, trivalent 03/02/1998 completed MELODY REYNA null, [facility] 11/25/2023 15:31:36 OPV, trivalent 1994 completed MELODY REYNA null, [facility] 11/25/2023 15:31:36 OPV, trivalent 1994 completed MELODY REYNA null, [facility] 11/25/2023 15:31:36 OPV, trivalent 06/20/1995 completed MELODY BOCANEGRA MBY null, [facility] 11/25/2023 15:31:36 DTP-Hib 06/20/1995 completed MELODY SINGLETON null, [facility] 11/25/2023 15:31:36 Hep A, ped/adol, 2 dose 10/21/1998 completed MELODYELLA CORDEROY null, [facility] 11/25/2023 15:31:36 Hep A, ped/adol, 2 dose 04/08/1998 completed MELODYELLA CORDEROY null, [facility] 11/25/2023 15:31:36 Hep A, ped/adol, 2 dose 05/27/1998 completed MELODYELLA CORDEROY null, [facility] 11/25/2023 15:31:36 Hib ([facility]) 1994 completed MELODYELLA SINGLETON null, [facility] 11/25/2023 15:31:36 Hib ([facility]) 1994 completed MELODY SINGLETON null, [facility] 11/25/2023 15:31:36 Hib ([facility]) 1994 completed MELODY CORDEROY null, [facility] 11/25/2023 15:31:36 DTaP 03/02/1998 completed MELODYELLA SINGLETON null, [facility] 11/25/2023 15:31:36 Past Encounters Encounter ID Performer Location Encounter Start Date Encounter Closed Date Diagnosis/Indication Diagnosis SNOMED-CT Code Diagnosis ICD10 Code Diagnosis IMO Codes Diagnosis Note [id number] LULU BOBBY PA-C [facility] ([facility]) [address] [place], [place] [phone] 5 08/31/2023 16:02:59 08/31/2023 18:57:43 Respiratory tract congestion and cough 612893542 R05.1 Acute bact erial sinusitis 37988412 J01.90 [id number] JASSON QUIROS [facility] ([facility]) [address] [place] [id number] 5 11/25/2023 14:14:32 11/25/2023 15:53:27 Ganglion cyst 50414188 M67.40 Discussed referral to Ortho for evaluation and treatment options. [id number] Gabbi Hoyt MD [facility] ([facility]) [address] [place] [id number] 5 12/05/2023 15:42:13 12/05/2023 16:25:21 Pain of right wrist 3381330757 49623 M25.531 Continue with work restrictio ns outlined by walk-in provider and follow-up with Ortho as scheduled. Adult [facility] th examination 382327653 Z00.00 Ramu well-janette nel diet and regular exercise. We will obtain lab work for preventati ve care and evaluation of underlying fatigue. 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 Patient is scheduled for surgery April 17. Will continue his restrictio ns until 2 weeks after surgery. Paperwork is filled out for him to be off work from February 27 to May 05. [id number] Gabbi Hoyt MD [facility] ([facility]) [address] [place] [address] [id number] 5 12/31/2024 11:29:56 12/31/2024 13:35:29 Bile-induced gastritis 70640402 K29.60 [id number] Patient does admit to some reflux symptoms. Will start omeprazole and see if this improves his upper abdominal pain. Acute abdominal pain 116 963638 R10.9 20896 X-rays of his abdomen were performed and reviewed by me. Moderate amount of stool was noted. Will await radiology overread. Patient likely will need treatment for constipati on. Altered saul wel function 32907219 R19.4 47362 The patient is had changes in his bowel habits and given the fact that his father had polyps at an early age, it would not be unreasonab le to consider colonoscop y. Will set up colonoscop y consult to discuss this further. Hypertensi ve emergency [id number] 27682 I16.1 [id number] Patient is having weird episodes of hypertensi on and symptoms. Unsure if it is blood pressure related or if the symptoms caused the blood pressure to go up. Will check labs today. [id number] Bonifacio Casey MD [facility] ([facility]) [address] [place] [address] [id number] 02/03/2025 12:39:04 02/03/2025 13:49:06 Altered bowel function 88665415 R19.4 61591 Rectal pain 54434201 K62 .89 8856 Rectal hemorrhage 020166 02 K62.5 55599 Chronic constipation 236 758759 K59.09 336489 Unintentio nal weight loss 149251458 R63.4 856612 Decrease in appetite 643 78535 R63.0 586725 [id number] Bonifacio Casey MD [facility] ([facility]) [address] [place] [address] [id number] 5 03/10/2025 11:43:58 03/11/2025 14:16:23 Right upper quadrant pain 134885194 R10.11 695966 Left upper quadrant pain 958152511 R10.12 712915 Chronic constipation 236 485807 K59.09 [id number] Health Concerns Section Related Observation LastModified by Organization Detai ls LastModified Time None Recorded Concern Status LastModified by Organization Details LastModified Time None Recorded Advance Directives Directive N: Payers Insurance Date Sequence Insurance Name Policy Number Policy Botello Covered Member ID Botello Member ID Guarantor Name 05/08/2025 1 [employer] [id number] Charles Squires [id number] Charles Squires Notes Date Note Type Note Provider Name and Address Organization Details Recorded Time 4 text/html This is a 28-year-old gentleman that comes in today to establish care. It is on leave of absence currently from work due to right wrist and arm pain. Patient has a palpable nodule that he states causes burning pain to go up his arm with activity. Patient denies any known medical issues. Patient states that he has been tired and fatigued and has decreased energy. Patient is wanting a general checkup and lab work. Gabbi Hoyt MD [address] [place] [address], [phone], [facility] 12/08/2023 09:51:16 4 text/html This is a 29-year-old gentleman that comes in today for paperwork for his employer. Patient has been diagnosed with carpal tunnel of his right hand. 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 Patient has been off since February 27. Patient needs paperwork filled out to discuss his restrictions and when he can return to work. Patient is scheduled next month for surgery. Gabbi Hoyt MD [address] [place] [address], [phone], [facility] 03/19/2024 09:04:01 5 text/html Abdominal PainReported by PatientAbdominal PainFor quality, patient reportssharp. For associated symptoms, patient reportsconstipationbut reportsno fever,no chills, andno blood in the urine(increased frequency of urination). For location, patient reportsepigastric. For severity, patient reportsmoderate. For duration, patient reportsintermittent. 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 food soothes the pain for a little while). For other, patient reportssexually active. For aggravating factors, (chronic constipation relieved with metamucil. still hasving upper abdominal pains). Hypertension IM/FMReported by PatientHPIFor severity, patient reportsmoderate.intermitten t high blood pressure palpations, ears ringing, thoughts aren't clear, chest pains, feels like he is going to pass out, headaches. This is a 39-year-old gentleman that comes in today with upper abdominal pain. Patient states that he has been having issues with constipation and this is changed from his normal bowel habits. While he had some improvement in pain with treatment of constipation that has not improved to his upper abdominal pain. Patient is concerned about colon cancer as he states unfortunately members with colon cancer but none of them very young. However, the patient's father has had polyps removed at the age of 34. The patient has also had episodes of significant elevated blood pressure associated with changes in mental status and some dizziness. Patient states that it is randomly and denies any specific aggravating factors. Gabbi Hoyt MD [address] [place] [address], [phone], [facility] 01/01/2025 18:28:11 5 text/html Colonoscopy ScreeningReported by PatientColonoscopy ScreeningFor gi symptoms, patient reportsabdominal pain,constipation,decrease in bowel movements,change in the stool,rectal bleeding, andharder or firmer stoolsbut reportsno diarrheaandno color change in stool. For associated symptoms, patient reportsdecreased appetitebut reportsno fever. For family history, patient reportspolypsandcolon cancer. For context, patient reportsno prior examination. The patient presents today at the request of Dr. Hoyt for evaluation and discussion of colonoscopy for change in bowel habits, chronic constipation, rectal bleeding, painful bowel movements, loss of weight ( about 20 pounds), abdominal pain, loss of appetite Problems with anesthesia in the past: NONE Family History of Colon cancers: maternal grandmother, paternal grandmother, maternal uncle Father had multiple pre-cancer colon polyps Blood Thinners: NONE Co-morbidities: Bonifacio Casey MD [address] [place] [address], [phone], [facility] 02/03/2025 13:42:00 5 text/html ROS as noted in the HPI F/U from colonoscopy on 02/26/25, pt states he is still having the RUQ pain that never goes away the pain radiates into his groin and upper thigh pt state the LUQ pain comes and goes. Pt states he he is still constipation he has not had a BM since Sunday and it was small and black in color.Pain last from hours to minutes. The pain is always there. Bonifacio Casey MD [address] [place] [address], [phone], [facility] 03/10/2025 22:37:19
[2025-06-17 18:00] VITALS: BP 142/84; PULSE 84; RESP 22; TEMP 36.6; O2SAT 100
--- NOTE | 2025-06-17 18:17 | ED_ITS ---
HPI - Chest Pain 2 General: Chief Complaint: Chest Pain Stated Complaint: CP and Sob Left arm tingly Time Seen by Provider: 06/17/25 18:17 History of Present Illness: Patient is 30-year-old male without previous medical issues that reports to the emergency room with chest pain. He reports this on the left side of his chest, radiating through to his back, up his left shoulder, and down his left arm. This is sharp in nature. His left lateral chest where his rib is feels like it has pain and is sucking in. This does not change with taking a deep breath. This does not change with pressure on his chest. No family history early heart disease. No personal history early heart disease. No personal risk factors that he is aware of. Associated symptoms: Reports palpitations; Deny abdominal pain, dyspnea, fever(s), nausea or vomiting Related Data Home Medications ?Medication ?Instructions ?Recorded ?Confirmed No Known Home Medications 05/01/2404/07 Allergies Allergy/AdvReac Type Severity Reaction Status Date / Time Iodinated Contrast Media Allergy ALGY-Rash Verified 05/01/24 10:52 Review of Systems 2 General: Reports: 10 or more systems reviewed and unremarkable except in HPI and below Const: Denies: fever(s), chills or body aches Card: Reports: chest pain and palpitations; Denies: orthopnea Resp: Denies: dyspnea, productive cough or wheezing GI: Denies: abdominal pain, nausea or vomiting Musc: Reports: joint pain, joint swelling, joint stiffness and limited range of motion Skin/Breast: Denies: changes in skin color or dry skin Neuro: Denies: numbness in extremities or weakness in extremities Psych: Denies: anxiety Darrell/Lymph: Denies: easy bruising or easy bleeding PFSH ED 2 PFSH: Medical History (Updated 06/17/25 @ 20:23 by NI Rollins) No pertinent past medical history Surgical History (Updated 05/01/24 @ 11:04 by NI Hart) History of surgical procedure on mouth No pertinent past surgical history Family History Other Cancer Diabetes Hypertension Social History Smoking and tobacco/nicotine status: former use of tobacco/nicotine Physical Exam 2 Const: COMMON NORMALS: no acute distress, average body habitus, patient oriented x3, no limitations, healthy appearing and alert HENMT: COMMON NORMALS: normocephalic, atraumatic and hearing grossly normal bilaterally HEAD & SCALP: normocephalic and atraumatic Neck/C-Spine: COMMON NORMALS: full ROM, no lymphadenopathy, supple and no meningeal signs Chest: COMMONS NORMALS: normal inspection of the chest and normal palpation of entire chest wall Resp: COMMON NORMALS: normal respiratory effort, No retractions, No use of accessory muscles and clear to auscultation bilaterally AUSCULTATION: clear to auscultation bilaterally Cardio: COMMON NORMALS: regular rate, regular rhythm and Peripheral pulses 2+ throughout RATE: regular rate RHYTHM: regular rhythm PERIPHERAL PULSES: Peripheral pulses 2+ throughout GI: COMMON NORMALS: Normal to inspection, nondistended, normoactive bowel sounds present, Soft to palpation, non-tender and No hepatosplenomegaly present PALPATION: Yes Soft to palpation and Yes No hepatosplenomegaly present : COMMON NORMALS: Yes no CVA tenderness BLADDER/KIDNEY EXAM: Yes no CVA tenderness Back/Pelvis: COMMON NORMALS: no CVA tenderness and thoraco-lumbar ROM normal Extremity: COMMON NORMALS: normal to inspection, full ROM and capillary refill normal Neuro: COMMON NORMALS: patient oriented x3 SENSORIUM/ORIENTATION: Yes alert MENINGEAL SIGNS: Yes no meningeal signs Skin: GENERAL SKIN EXAM: dry skin Course 2 Vital Signs: Vital signs: Vital Signs Temperature 97.9 F 06/17/25 18:00 Pulse Rate 71 06/17/25 20:00 Respiratory Rate 17 06/17/25 18:43 Blood Pressure 107/66 06/17/25 20:00 Pulse Oximetry 98 06/17/25 20:00 Oxygen Delivery Me thod Room Air 06/17/25 20:00 MDM - Chest Pain Medical Decision Making Patient is a pleasant 30-year-old gentleman with chest pain, that is essentially ruled out from ischemic standpoint. His chest pain is not reproducible. Will attempt some Toradol, Norflex. Patient will follow-up with primary care that he does have establishment with. All of his questions answered to his understanding. Medical Records I reviewed the patient's medical records. Lab Data I reviewed the patient's lab results. 06/17/25 18:43 06/17/25 18:43 Radiology Impressions Chest X-Ray 06/17/25 18:33 IMPRESSION: No acute cardiopulmonary abnormality. Laboratory Results WBC 4.20 10^3/uL (3.29-11.43) 06/17/25 18:43 RBC 4.38 10^6/uL (3.85-5.65) 06/17/25 18:43 Hgb 13.20 g/dL (11.27-16.99) 06/17/25 18:43 Hct 38.3 % (37-53) 06/17/25 18:43 MCV 87.4 fl (82-101) 06/17/25 18:43 MCH 30.1 pg (27-33) 06/17/25 18:43 MCHC 34.5 g/dL (30-55) 06/17/25 18:43 RDW 12.3 % (12.1-15.1) 06/17/25 18:43 Plt Count 163 10^3/cmm (157-399) 06/17/25 18:43 MPV 10.8 fL (7.4-10.4) H 06/17/25 18:43 Neut % (Auto) 32.6 % 06/17/25 18:43 Lymph % (Auto) 57.1 % 06/17/25 18:43 [place] % (Auto) 8.6 % 06/17/25 18:43 Eos % (Auto) 0.5 % 06/17/25 18:43 Baso % (Auto) 1.0 % 06/17/25 18:43 Neut # (Auto) 1.37 10^3/uL (1.8-7.7) L 06/17/25 18:43 Lymph # (Auto) 2.4 10^3/uL (0.8-4.8) 06/17/25 18:43 [place] # (Auto) 0.4 10^3/uL (0.2-0.9) 06/17/25 18:43 Eos # (Auto) 0.0 10^3/uL (0.0-0.8) 06/17/25 18:43 Baso # (Auto) 0.0 10^3/uL (0.0-0.1) 06/17/25 18:43 Nucleated RBC % (auto) 0 % 06/17/25 18:43 Nucleated RBCs # 0.0 /100WBC 06/17/25 18:43 D-Dimer 0.29 ug/mLFEU (0-0.59) 06/17/25 18:43 Sodium 140 mmol/L (136-145) 06/17/25 18:43 Potassium 4.4 mmol/L (3.5-5.1) 06/17/25 18:43 Chloride 107 mmol/L (98-107) 06/17/25 18:43 Carbon Dioxide 22 mmol/L (22-29) 06/17/25 18:43 Anion Gap 15.4 (5-19) 06/17/25 18:43 BUN 15 mg/dL (6-20) 06/17/25 18:43 Creatinine 0.9 mg/dL (0.7-1.2) 06/17/25 18:43 GFR Calculation 98.4 mL/min (90-130) 06/17/25 18:43 Glucose 78 mg/dL (65-115) 06/17/25 18:43 Calculated Osmolality 290 mOsm/kg (285-295) 06/17/25 18:43 Calcium 8.5 mg/dL (8.5-10.5) 06/17/25 18:43 Magnesium 2.0 mg/dL (1.7-2.3) 06/17/25 18:43 Total Bilirubin 0.6 mg/dL (0.15-1.2) 06/17/25 18:43 AST 11 U/L (0-40) 06/17/25 18:43 ALT 10 U/L (0-41) 06/17/25 18:43 Alkaline Phosphatase 39 U/L (40-130) L 06/17/25 18:43 Troponin T Baseline < 6 ng/L (0-15) 06/17/25 18:43 NT-Pro-B Natriuret Pep 130 pg/mL (0-125) H 06/17/25 18:43 Total Protein 6.5 g/dL (6.6-8.7) L 06/17/25 18:43 Albumin 4.1 g/dL (3.5-5.2) 06/17/25 18:43 Globulin 2.4 g/dL (1.3-4.6) 06/17/25 18:43 TSH 1.03 uIU/mL (0.27-4.20) 06/17/25 18:43 All radiology interpretation(s) finalized by discharge Discharge Plan Discharge Patient Disposition: Home Clinical Impression: Atypical chest pain Condition: Stable Prescriptions: No Action No Known Home Medications Discharge Orders: Discharge ED (Routine); Ordered 06/17/25 Ordered By: Tamar Bar Patient Instructions: Noncardiac Chest Pain (ED), Patient Portal & Db Instructions Activity Restrictions/Additional Instructions: - If additional concerns delineate, please return to the ED. Thank you for choosing [facility] for your healthcare needs today. You have been screened and evaluated and felt safe for discharge. Health conditions do change or evolve sometimes and as such it is important that you follow up with your Primary Doctor to be re checked, 3-5 days is a general good time frame for follow up. 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
--- NOTE | 2025-06-17 18:33 | XRR_ITS ---
PROCEDURE INFORMATION: Exam: XR Chest Exam date and time: 06/17/2025 6:39 PM Age: 30 years old Clinical indication: Pain; Angina pectoris; Additional info: Chest pain TECHNIQUE: Imaging protocol: Radiologic exam of the chest. Views: 1 view. COMPARISON: CR XR abdomen min 2V 78041 12/31/2024 11:25 AM FINDINGS: Tubes, catheters and devices: Overlying monitor leads noted. Lungs: Unremarkable. No infiltrate/edema or consolidation. Pleural spaces: Unremarkable. No pleural effusion. No pneumothorax. Heart/Mediastinum: Unremarkable. No cardiomegaly. Bones/joints: Visualized osseous structures show no acute abnormality. XR/XR chest 1V portable [id number] IMPRESSION: No acute cardiopulmonary abnormality.
--- NOTE | 2025-06-17 18:33 | ECG_ITS ---
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 Measurements Intervals [place] Rate: 86 P: 32 NE: 96 QRS: 42 QRSD: 92 T: 43 QT: 356 QTc: 427 Interpretive Statements SINUS RHYTHM WITH SHORT NE INTERVAL No previous ECG available for comparison Electronically Signed On 06-17-2025 20:00:52 HYDRAULIC TECHNICIAN by Maxwell Rodriguez M.D. [id number]
[2025-06-17 18:43] VITALS: BP 125/74; PULSE 94; RESP 17; O2SAT 97
[2025-06-17 18:51] LABS: Hematocrit 38.3 % (37-53); Hemoglobin 13.20 g/dL (11.27-16.99); Mean Corpuscular HGB Conc 34.5 g/dL (30-55); Mean Corpuscular Hemoglobin 30.1 pg (27-33); Mean Corpuscular Volume 87.4 fl (82-101); Nucleated Red Blood Cells % 0 %; Platelet Count 163 10^3/cmm (157-399); Red Blood Count 4.38 10^6/uL (3.85-5.65); White Blood Count 4.20 10^3/uL (3.29-11.43)
[2025-06-17 19:09] VITALS: BP 111/70; PULSE 71; O2SAT 98
[2025-06-17 19:09] LABS: Troponin(5th) Baseline < 6 ng/L (0-15)
[2025-06-17 19:30] VITALS: BP 116/67; PULSE 74; O2SAT 97
[2025-06-17 19:31] LABS: Alanine Aminotransferase 10 U/L (0-41); Albumin Level 4.1 g/dL (3.5-5.2); Alkaline Phosphatase 39 U/L (40-130); Anion Gap 15.4 (5-19); Aspartate Amino Transferase 11 U/L (0-40); Blood Urea Nitrogen 15 mg/dL (6-20); Calcium 8.5 mg/dL (8.5-10.5); Carbon Dioxide 22 mmol/L (22-29); Chloride 107 mmol/L (98-107); Creatinine Clr Calc Pharmacy 132.6429; Globulin 2.4 g/dL (1.3-4.6); Glucose 78 mg/dL (65-115); Magnesium 2.0 mg/dL (1.7-2.3); NT Pro B Type Natriuretic Pept 130 pg/mL (0-125); Osmolality Calculated 290 mOsm/kg (285-295); Potassium 4.4 mmol/L (3.5-5.1); Sodium 140 mmol/L (136-145); Thyroid Stimulating Hormone 1.03 uIU/mL (0.27-4.20); Total Protein 6.5 g/dL (6.6-8.7)
[2025-06-17 20:00] VITALS: BP 107/66; PULSE 71; O2SAT 98
[2025-06-17 20:31] VITALS: BP 117/85; PULSE 65; O2SAT 97
--- NOTE | 2025-06-17 20:33 | ECG_ITS ---
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 Measurements Intervals [place] Rate: 75 P: 0 MI: 0 QRS: 9 QRSD: 76 T: 154 QT: 404 QTc: 453 Interpretive Statements ATRIAL FIBRILLATION MODERATE T-WAVE ABNORMALITY, CONSIDER LATERAL ISCHEMIA [-0.1+ mV T-WAVE IN I/aVL/V5/V6] No previous ECG available for comparison Electronically Signed On 06-19-2025 19:50:41 MOLD CAR PUSHER by Bebo Ro M.D. [id number]
== END 2025-06-17 20:43 | disposition home or self-care (01) ==
PROVIDERS: Emergency Provider Physician Assistant
DX: R07.89 Other chest pain (principal); Z87.891 Personal history of nicotine dependence
CPT/HCPCS: 71045; 80053; 83735; 83880; 84443; 84484; 85025; 85378; 93005; 99285; J9999